=== PATIENT | male | born 1930 | race Caucasian/White ===

== ENCOUNTER 2018-06-26 01:59 | Inpatient (IN) | payer MEDICARE, BC ==
--- NOTE | 2018-06-26 02:04 | ED ---
Lower Extremity - HPI Summary HPI Summary: The pt is an 88 y/o male transferred from [facility] to [facility] c/o L hip pain since 05/28/2018 worsened today. He fell landing on his L side and injuring his L hip. He notes decreased ROM, difficulty ambulating, but denies CP, and dyspnea. The L hip pain is rated 7/10 in severity. The pt was seen at [facility] where a hip X-ray revealed hip contusion. Afterwards he continued rehabilitation to no relief. He does not see an orthopedist currently. 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 - History of Current Complaint Stated Complaint: HIP PAIN Hx Obtained From: Patient Mechanism Of Injury: Fall From A Standing Position Onset/Duration: Still Present - 4 weeks Severity Currently: Moderate Pain Intensity: 7 Pain Scale Used: 0-10 Numeric Location: Is Discrete @ - L hip Character Of Pain: Sharp Aggravating Factor(s): Ambulation - Allergies/Home Medications Allergies/Adverse Reactions: Allergies Allergy/AdvReac Type Severity Reaction Status Date / Time levofloxacin Allergy Unknown See Comment Verified 06/26/18 04:34 Penicillins Allergy Unknown Unknown Verified 06/26/18 04:34 Reaction Details Home Medications: Home Medications Metformin HCl 500 mg PO DAILY 06/26/18 [History Confirmed 06/26/18] Multivitamin [Multivitamins] 1 cap PO DAILY 06/26/18 [History Confirmed 06/26/18 ] PMH/Surg Hx/FS Hx/Imm Hx Previously Healthy: No Endocrine/Hematology History: Reports: Hx Anticoagulant Therapy - asa Denies: Hx Diabetes, Hx Thyroid Disease, Hx Anemia Cardiovascular History: Reports: Hx Aneurysm, Hx Congestive Heart Failure, Hx Hypertension History: Reports: Hx Benign Prostatic Hyperplasia Sensory History: Reports: Hx Contacts or Glasses Denies: Hx Cataracts, Hx Glaucoma, Hx Macular Degeneration, Hx Deafness Opthamlomology History: Reports: Hx Contacts or Glasses Denies: Hx Cataracts, Hx Glaucoma, Hx Macular Degeneration - Cancer History Cancer Type, Location and Year: None reported - Surgical History Surgery Procedure, Year, and Place: multiple lung operations leading to left poreumectomy in 1956, CAB x4 1999, tonsillectomy, electroraporization ~ Hx Anesthesia Reactions: No Infectious Disease History: Reports: Hx Tuberculosis - 1953 - Family History Known Family History: Positive: Unknown - Social History Occupation: Retired Lives: With Family Substance Use Type: Reports: None Smoking Status (MU): Former Smoker - Quit 50 years ago Review of Systems Negative: Chest Pain Respiratory: Negative - Dyspnea Musculoskeletal: Other - Positive: L hip pain, fall, difficulty ambulating Positive: Decreased ROM All Other Systems Reviewed And Are Negative: Yes Physical Exam - Summary Physical Exam Summary: Appearance: Well-appearing, Well-nourished, lying in bed comfortably Skin: Warm, dry, no obvious rash Eyes: sclera anicteric, no conjunctival pallor ENT: mucous membranes moist, pharynx appears normal Neck: Supple, nontender Respiratory: Clear to auscultation, no signs of respiratory distress Cardiovascular: Normal S1, S2. No murmurs. Normal distal pulses in tibial and radial bilaterally. Abdomen: Soft, nontender, normal active bowel sounds present Musculoskeletal: Pain with motion of the L hip Neurological: A&Ox3, awake and alert, mentation is normal, speech is fluent and appropriate Psychiatric: affect is normal, does not appear anxious or depressed Triage Information Reviewed: Yes Vital Signs On Initial Exam: Initial Vital Signs Temp 98.5 F 06/26/18 02:00 Pulse 106 06/26/18 02:00 Resp 18 06/26/18 02:00 BP 125/71 06/26/18 02:00 Pulse Ox 95 06/26/18 02:00 Vital Signs Reviewed: Yes Procedures - Procedure Summary Procedure Summary: Procedure: Block of the femoral nerve using 5ccs of 5% bupivacaine Diagnostics - Laboratory Lab Statement: Any lab studies that have been ordered have been reviewed, and results considered in the medical decision making process. - Radiology L Hip X-Ray Radiology Interpretation Completed By: ED Physician - IMPRESSION: Displaced femoral head fracture Lower Extremity Course/Dx - Course Course Of Treatment: An 88 year-old M presents to the ED with a CC of L hip pain since 05/28/2018 worsened today. He fell landing on his L side injuring his L hip. He notes decreased ROM, difficulty ambulating, but denies CP, and dyspnea. The L hip pain is rated 7/10 in severity. The pt was seen at [facility] where a hip X-ray revealed hip contusion. Afterwards he continued rehabilitation to no relief. He does not see an orthopedist currently. A physical exam is unremarkable. A hip pelvis X-ray reveals a displaced femoral head fracture. In the ED course, pt was given Morphine 4mg IV which improved the symptoms. I performed a femoral nerve block using 5ccs of 5% bupivacaine. I discussed the care of the pt with Dr. Judy Diane MD who agreed to admit the pt. The orthopedist agreed to see the patient tomorrow morning as inpatient. Patient will be admitted with a final Dx of L hip fracture. Pt is agreeable with this plan. Allergies noted. - Diagnoses Provider Diagnoses: Fracture of left hip - Physician Notifications Discussed Care Of Patient With: Js Edmond - Orthopedist Time Discussed With Above Provider: 02:53 Instructed by Provider To: MD Will See In ED - 03:30 - I discussed the care of the pt with Dr. Judy Diane who agreed to admit the pt. Discharge - Sign-Out/Discharge Documenting (check all that apply): Patient Departure - Discharge Plan Condition: Stable Disposition: ADMITTED TO [facility] - Attestation Statements Document Initiated by Scribe: Yes Documenting Scribe: Erica Alejandre Provider For Whom Saryibe is Documenting (Include Credential): Dr. Maikol Delaney MD Scribe Attestation: Erica Victor , scribed for Dr. Maikol Delaney MD on 06/26/18 at 0445.
[2018-06-26] MEDS ORDERED: Morphine VIAL* 4 MG/ML VIAL (1 ml vial) IV ONE (02:51)
[2018-06-26] MEDS ORDERED: Morphine INJ* 4 MG/ML 1 ML SYRINGE (NEW SYRINGE VERSION) ONE (02:58)
[2018-06-26] MEDS ORDERED: NS 0.9% 1000 ML* 1,000 ML IV SCH ×2 (03:45→04:00)
--- NOTE | 2018-06-26 04:01 | ADMNOTE ---
Subjective Date of Service: 06/26/18 Interval History: this is a h/p for admission pt is dnr/dnr molst in chart 60 min spent in eval pt hpi this is a 88 yr old wm with hx of cad s/p cabg hx of chf not sure what kind but + leg edema hx of pul fibrosis on nocturnal oxygen 3-4 liter and oxygen 3-4 liter when ambulatory was sent from [facility] for hip fx. pt had a slip on ice four weeks ago and went to [facility] er for eval had x ray and was neg --- > d/cd home. for the past four weeks he has increaseing pain on the left hip and could not bear with it ---> went in again for checkup and was found to have left femur fx ---> ct also revealed a large 6.2 cm abd aaa pt says he could walk with a austin for 5-10 blocks until lately due to the leg pain. initial ekg showed st-t depression on lead v3-v5 but trop was neg. ortho was called from er ---> will see pt in am phx/psxh pul fibrosis on nocturnal oxygen 3-4 liter/min + 3-4 liter/min upon ambulation ? copd ( quit 60 yrs ago ) prob systolic hf but no prior echo available chronic leg edema cad s/p cabg 4 v 1999 no cardiac cath done afterwards and no stress test done either hx of throracic spine tb multiple levels 1953 fully treated unsteady gait walks with a austin htn type ii dm debility hyperlipidemia bph s/p electrical ablation mood disorder espically anxiety Family History: Findings - fathter + htn Social History: Findings - quit cig smoke 60 yrs ago one glass of wine daily walks with a austin lives with Past Medical History: Findings - as per hpi Review of Systems - Measurements Intake and Output: Intake and Output Last 24 Hours 06/23/18 06/24/18 06/25/18 06/26/18 06:59 06:59 06:59 06:59 Weight 150 lb - Review of Systems General Comments: pertinent as per hpi Objective Active Medications: Amlodipine Besylate (Norvasc Tab*) 5 mg PO DAILY [facility] Digoxin (Lanoxin Tab*) 0.0001 mg PO DAILY [facility] Finasteride (Proscar Tab*) 5 mg PO DAILY [facility] Heparin Sodium (Porcine) (Heparin Vial(*)) 5,000 units SUBCUT Q8HR TALYA Sodium Chloride (Ns 0.9% 1000 Ml*) 1,000 mls @ 100 mls/hr IV PER RATE TALYA Sodium Chloride (Ns 0.9% 1000 Ml*) 1,000 mls @ 100 mls/hr IV PER RATE [facility] Insulin Human Regular (Insulin Regular(*)) 0 units SUBCUT Q6HR TALYA; Protocol Metoprolol Succinate (Toprol Xl Tab*) 100 mg PO DAILY [facility] Non-Formulary Medication (Aspirin [Aspirin]) 325 mg PO DAILY [facility] Non-Formulary Medication (Candesartan Cilexetil [Atacand]) 8 mg PO BEDTIME [facility] Non-Formulary Medication (Multivitamin [Multivitamins]) 1 cap PO DAILY [facility] Simvastatin (Zocor(Nf)) 40 mg PO DAILY [facility] Tamsulosin HCl (Flomax Cap*) 0.8 mg PO DAILY [facility] Vital Signs - 8 hr 06/26/18 06/26/18 02:00 03:02 Temperature 98.5 F Pulse Rate 106 Respiratory 18 24 Rate Blood Pressure 125/71 (mmHg) O2 Sat by Pulse 95 Oximetry Oxygen Devices in Use Now: Nasal Cannula Appearance: nad Eyes: No Scleral Icterus, PERRLA Ears/Nose/Mouth/Throat: NL Teeth, Lips, Gums, Clear Oropharnyx, - - oral mucosa very dry no thrush Neck: NL Appearance and Movements; NL JVP, Trachea Midline, No Thyroid Enlargement, Masses Respiratory: Symmetrical Chest Expansion and Respiratory Effort, Clear to Auscultation Cardiovascular: NL Sounds; No Murmurs; No JVD, RRR Abdominal: NL Sounds; No Tenderness; No Distention Extremities: - - 3+ pedal edema from ankle to knee level b/l 1+ from knee to thigh able to raise ue against gravity lle is shorter than rle Skin: No Rash or Ulcers Neurological: Alert and Oriented x 3, - - cranial n 2-12 grossly intact motor b/ l ue 5/5 b/l ue and le sensory 2/2 Additional Lab and Data: wbc 10.6 h/h 12.3/37.4 plat 673 mcv 96.9 rdw 13 n 79 percent na 141 k 3.5 cl 103 bicarb 32 bun 45 creatinine 1.7 glucose 123 tp 7.1 alb 3.5 tb 0.7 ast 26 alt 62 alk 309 [id number] trop 0.014 EKG Data: sinus tach at rate [address]- t depression on v5/v6 Assess/Plan/Problems-Billing Assessment: 88 yr old wm with multiple medical problems was transferred from [facility] to [facility] due to concurrent hip fx seen on ct of abd/pelvis. pt was found to have a 6.2 cm aaa as well. has st t depression on v3-v5 on initial ekg done in [facility] too. however he was able to walk with austin for 5-10 blocks if his leg does not bother him---> functonal mets >4 but would still get cardio eval due to his other cardiac problem - Patient Problems (1) Left displaced femoral neck fracture Current Visit: Yes Status: Acute Code(s): S72.002A - FRACTURE OF UNSP PART OF NECK OF LEFT FEMUR, INIT SNOMED Code(s): 0395378 Comment: ortho to eval in am morphine 1/2 q4 prn pending pain level zofran prn ortho called in from er (2) CAD (coronary artery disease) Current Visit: Yes Status: Acute Code(s): I25.10 - ATHSCL HEART DISEASE OF [place] CORONARY ARTERY W/O ANG PCTRS SNOMED Code(s): 47484013 Comment: hx of cad s/p cabg 4 v 1999 but no stent and no stress test done afterwards st t depression on the v3-v5 lead but trop neg large 6.2 cm aaa seen on ct cardio for [place] in am will continue his heart meds tele with madiha ck dig level in am (3) CHF (congestive heart failure) Current Visit: Yes Status: Acute Code(s): I50.9 - HEART FAILURE, UNSPECIFIED SNOMED Code(s): 43374803 Comment: pt is also + pedal edema prob systolic hf will order echo in am (4) Pulmonary fibrosis Current Visit: Yes Status: Acute Code(s): J84.10 - PULMONARY FIBROSIS, UNSPECIFIED SNOMED Code(s): 19448880 Comment: on oxygen 3-4 liter supportive care at this time (5) Oxygen dependent Current Visit: Yes Status: Acute Code(s): Z99.81 - DEPENDENCE ON SUPPLEMENTAL OXYGEN SNOMED Code(s): 457844911046 Comment: continue oxygen at this point (6) HTN (hypertension) Current Visit: Yes Status: Acute Code(s): I10 - ESSENTIAL (PRIMARY) HYPERTENSION SNOMED Code(s): 81963764 Comment: stable continue current mgt (7) Type II diabetes mellitus Current Visit: Yes Status: Acute Comment: npo for possible surgery ck a1c hold metfomrin insulin ss (8) BPH (benign prostatic hyperplasia) Current Visit: Yes Status: Acute Code(s): N40.0 - BENIGN PROSTATIC HYPERPLASIA WITHOUT LOWER URINRY TRACT SYMP SNOMED Code(s): 678106831 Comment: [facility] for comfort (9) Anxiety Current Visit: Yes Status: Acute Code(s): F41.9 - ANXIETY DISORDER, UNSPECIFIED SNOMED Code(s): 63600572 Comment: ativan prn ordered 0.25 q 8h (10) DNR (do not resuscitate) Current Visit: Yes Status: Acute (11) Hyperlipidemia Current Visit: Yes Status: Acute Code(s): E78.5 - HYPERLIPIDEMIA, UNSPECIFIED SNOMED Code(s): 62680878 (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
[2018-06-26] MEDS ORDERED: Morphine INJ* 4 MG/ML 1 ML SYRINGE (NEW SYRINGE VERSION) IV PRN ×2 (04:02→06:00)
[2018-06-26] MEDS ORDERED: Ondansetron INJ* 2 MG/ML VIAL IV PRN (04:02)
[2018-06-26] MEDS ORDERED: LORazepam TAB(*) 0.5 MG PO PRN (04:35)
[2018-06-26] MEDS ORDERED: Insulin REGULAR(*) 1 UNITS UNIT SUBCUT SCH (06:00)
[2018-06-26 06:30] LABS: ABS Basophils 0 10^3/ul (0-0.2); ABS Eosinophils 0.1 10^3/ul (0-0.6); ABS Lymphocytes 0.7 10^3/ul (1.0-4.8); ABS Monocytes 0.8 10^3/ul (0-0.8); ABS Neutrophils 6.1 10^3/ul (1.5-7.7); ABS Nucleated RBC 0 10^3/ul; Eosinophil % 1.5 % (0-6); Hematocrit 34 % (42-52); Hemoglobin 11.8 g/dl (14.0-18.0); Lymphocyte % 9.1 % (25-47); Mean Corpuscular HGB Conc 34 g/dl (31-36); Mean Corpuscular Hemoglobin 32 pg (27-31); Mean Corpuscular Volume 94 fL (80-94); Mean Platelet Volume 7.7 um3 (7.4-10.4); Nucleated Red Blood Cells % 0; Platelet Count 155 10^3/ul (150-450); Red Blood Count 3.63 10^6/ul (4.00-5.40); Red Cell Distribution Width 13 % (10.5-15); White Blood Count 7.9 10^3/ul (3.5-10.8)
[2018-06-26 06:41] LABS: INR 1.06 (0.77-1.02)
[2018-06-26 06:51] LABS: EGFR Non-African American 51.8 (>60)
--- NOTE | 2018-06-26 07:06 | CONSULT ---
Consult Consult: Ortho Consult Summary 88 yo male, fell 4 weeks ago, x-rays negative, but with increasing left hip pain. Returned to [facility] ED and x-rays found a displaced left femoral neck fracture. Has multiple medical comorbidities. D/w him a hemiarthroplasty is standard treatment for this. Will await medical optimization.
--- NOTE | 2018-06-26 07:14 | DS ---
this is discharge summery AFTER SPEAKING WITH [facility] WHO COULD NOT EVAL HIS LARGE SIZE OF AAA ---> DUE TO THE SIZE AND POSSIBLE INCREASE CHANCE OF RUPTURE PERIOPERATIVELY ---> TRANSFER TO [facility] INITIATED ---> SPOKE WITH THEIR VASCULAR SURGERY WHO WILL SEE PT A CONSULT ---> ALSO SPOKE WITH MEDICAL SERVICE AND PT WAS ACCEPTED BY DR NICHOLS. [facility] AND MEDICAL TEAM IS GREATLY APPRECIATED. PT WAS ADMITTED EARLIER FOR LEFT FEMUR FRACTURE WHO NEEDS ORTHO SURGERY. BUT CT OF ABD/PELVIS ALSO SHOWED A LARGE 6.2 CM AAA. [facility] [place] [facility]GERY SERVICE AND PT IS TRANSFERRED TO [facility] DUE TO THE NEED OF HIGHER LEVEL OF SERVICE PERIOPERIOPERATIVELY pt is dnr/dnr molst in chart hpi this is a 88 yr old wm with hx of cad s/p cabg hx of chf not sure what kind but + leg edema hx of pul fibrosis on nocturnal oxygen 3-4 liter and oxygen 3-4 liter when ambulatory was sent from [facility] for hip fx. pt had a slip on ice four weeks ago and went to [facility] er for eval had x ray and was neg --- > d/cd home. for the past four weeks he has increaseing pain on the left hip and could not bear with it ---> went in again for checkup and was found to have left femur fx ---> ct also revealed a large 6.2 cm abd aaa pt says he could walk with a austin for 5-10 blocks until lately due to the leg pain. initial ekg showed st-t depression on lead v3-v5 but trop was neg. ortho was called from er ---> will see pt in am phx/psxh pul fibrosis on nocturnal oxygen 3-4 liter/min + 3-4 liter/min upon ambulation ? copd ( quit 60 yrs ago ) prob systolic hf but no prior echo available chronic leg edema cad s/p cabg 4 v 1999 no cardiac cath done afterwards and no stress test done either hx of throracic spine tb multiple levels 1953 fully treated unsteady gait walks with a [place]in htn type ii dm debility hyperlipidemia bph s/p electrical ablation mood disorder espically anxiety Family History: Findings - fathter + htn Social History: Findings - quit cig smoke 60 yrs ago one glass of wine daily walks with a austin lives with Past Medical History: Findings - as per hpi Review of Systems - Measurements Intake and Output: Intake and Output Last 24 Hours 06/23/18 06/24/18 06/25/18 06/26/18 06:59 06:59 06:59 06:59 Weight 150 lb - Review of Systems General Comments: pertinent as per hpi Objective Active Medications: Amlodipine Besylate (Norvasc Tab*) 5 mg PO DAILY [facility] Digoxin (Lanoxin Tab*) 0.0001 mg PO DAILY [facility] Finasteride (Proscar Tab*) 5 mg PO DAILY [facility] Heparin Sodium (Porcine) (Heparin Vial(*)) 5,000 units SUBCUT Q8HR [facility] Sodium Chloride (Ns 0.9% 1000 Ml*) 1,000 mls @ 100 mls/hr IV PER RATE [facility] Sodium Chloride (Ns 0.9% 1000 Ml*) 1,000 mls @ 100 mls/hr IV PER RATE [facility] Insulin Human Regular (Insulin Regular(*)) 0 units SUBCUT Q6HR TALYA; Protocol Metoprolol Succinate (Toprol Xl Tab*) 100 mg PO DAILY [facility] Non-Formulary Medication (Aspirin [Aspirin]) 325 mg PO DAILY [facility] Non-Formulary Medication (Candesartan Cilexetil [Atacand]) 8 mg PO BEDTIME [facility] Non-Formulary Medication (Multivitamin [Multivitamins]) 1 cap PO DAILY [facility] Simvastatin (Zocor(Nf)) 40 mg PO DAILY [facility] Tamsulosin HCl (Flomax Cap*) 0.8 mg PO DAILY [facility] Vital Signs - 8 hr 06/26/18 06/26/18 02:00 03:02 Temperature 98.5 F Pulse Rate 106 Respiratory 18 24 Rate Blood Pressure 125/71 (mmHg) O2 Sat by Pulse 95 Oximetry Oxygen Devices in Use Now: Nasal Cannula Appearance: nad Eyes: No Scleral Icterus, PERRLA Ears/Nose/Mouth/Throat: NL Teeth, Lips, Gums, Clear Oropharnyx, - - oral mucosa very dry no thrush Neck: NL Appearance and Movements; NL JVP, Trachea Midline, No Thyroid Enlargement, Masses Respiratory: Symmetrical Chest Expansion and Respiratory Effort, Clear to Auscultation Cardiovascular: NL Sounds; No Murmurs; No JVD, RRR Abdominal: NL Sounds; No Tenderness; No Distention Extremities: - - 3+ pedal edema from ankle to knee level b/l 1+ from knee to thigh able to raise ue against gravity lle is shorter than rle Skin: No Rash or Ulcers Neurological: Alert and Oriented x 3, - - cranial n 2-12 grossly intact motor b/ l ue 5/5 b/l ue and le sensory 2/2 Additional Lab and Data: wbc 10.6 h/h 12.3/37.4 plat 673 mcv 96.9 rdw 13 n 79 percent na 141 k 3.5 cl 103 bicarb 32 bun 45 creatinine 1.7 glucose 123 tp 7.1 alb 3.5 tb 0.7 ast 26 alt 62 alk 309 ces558 trop 0.014 EKG Data: sinus tach at rate [address]- t depression on v5/v6 Assess/Plan/Problems-Billing Assessment: 88 yr old wm with multiple medical problems was transferred from [facility] to [facility] due to concurrent hip fx seen on ct of abd/pelvis. pt was found to have a 6.2 cm aaa as well. has st t depression on v3-v5 on initial ekg done in [facility] too. however he was able to walk with austin for 5-10 blocks if his leg does not bother him---> functonal mets >4 but would still get cardio eval due to his other cardiac problem - Patient Problems (1) Left displaced femoral neck fracture Current Visit: Yes Status: Acute Code(s): S72.002A - FRACTURE OF UNSP PART OF NECK OF LEFT FEMUR, INIT SNOMED Code(s): 2213361 Comment: ortho to eval in am morphine 1/2 q4 prn pending pain level zofran prn ortho called in from er (2) CAD (coronary artery disease) Current Visit: Yes Status: Acute Code(s): I25.10 - ATHSCL HEART DISEASE OF [place] CORONARY ARTERY W/O ANG PCTRS SNOMED Code(s): 61268904 Comment: hx of cad s/p cabg 4 v 1999 but no stent and no stress test done afterwards st t depression on the v3-v5 lead but trop neg large 6.2 cm aaa seen on ct cardio for [place] in am will continue his heart meds tele with madiha ck dig level in am (3) CHF (congestive heart failure) Current Visit: Yes Status: Acute Code(s): I50.9 - HEART FAILURE, UNSPECIFIED SNOMED Code(s): 73329632 Comment: pt is also + pedal edema prob systolic hf will order echo in am (4) Pulmonary fibrosis Current Visit: Yes Status: Acute Code(s): J84.10 - PULMONARY FIBROSIS, UNSPECIFIED SNOMED Code(s): 21814558 Comment: on oxygen 3-4 liter supportive care at this time (5) Oxygen dependent Current Visit: Yes Status: Acute Code(s): Z99.81 - DEPENDENCE ON SUPPLEMENTAL OXYGEN SNOMED Code(s): 729030380169 Comment: continue oxygen at this point (6) HTN (hypertension) Current Visit: Yes Status: Acute Code(s): I10 - ESSENTIAL (PRIMARY) HYPERTENSION SNOMED Code(s): 95126241 Comment: stable continue current mgt (7) Type II diabetes mellitus Current Visit: Yes Status: Acute Comment: npo for possible surgery ck a1c hold metfomrin insulin ss (8) BPH (benign prostatic hyperplasia) Current Visit: Yes Status: Acute Code(s): N40.0 - BENIGN PROSTATIC HYPERPLASIA WITHOUT LOWER URINRY TRACT SYMP SNOMED Code(s): 820392915 Comment: [facility] (9) Anxiety Current Visit: Yes Status: Acute Code(s): F41.9 - ANXIETY DISORDER, UNSPECIFIED SNOMED Code(s): 03447600 Comment: ativan prn ordered 0.25 q 8h (10) DNR (do not resuscitate) Current Visit: Yes Status: Acute (11) Hyperlipidemia Current Visit: Yes Status: Acute Code(s): E78.5 - HYPERLIPIDEMIA, UNSPECIFIED SNOMED Code(s): 21613881 (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
[2018-06-26 07:57] VITALS: BP 113/54
--- NOTE | 2018-06-26 08:01 | RAD ---
Indication: Left hip pain. Of 2 views of left hip and an AP view the pelvis demonstrates a fracture through the neck of the femur with overriding of the fracture fragments. Joint spaces well-preserved. Patient reports a known left hip fracture. IMPRESSION: Fracture neck of the left femur. R1
[2018-06-26] MEDS ORDERED: Atorvastatin* 20 MG TAB PO SCH (09:00)
[2018-06-26] MEDS ORDERED: Vitamin THERAPEUTIC TAB PO SCH (09:00)
[2018-06-26] MEDS ORDERED: Finasteride TAB* 5 MG PO SCH (09:00)
[2018-06-26] MEDS ORDERED: Tamsulosin CAP* 0.4 MG PO SCH (09:00)
[2018-06-26] MEDS ORDERED: Aspirin TAB* 325 MG PO SCH (09:00)
[2018-06-26] MEDS ORDERED: amLODIPine TAB* 5 MG PO SCH (09:00)
[2018-06-26] MEDS ORDERED: Metoprolol Succinate XL TAB* 100 MG PO SCH (09:00)
[2018-06-26] MEDS ORDERED: Digoxin TAB* 0.125 MG PO SCH (17:00)
[2018-06-26] MEDS ORDERED: Valsartan TAB* 40 MG PO SCH (21:00)
[2018-06-26] MEDS ORDERED: Heparin VIAL(*) 5000 UNITS/ML VIAL (FIVE THOUSAND) SUBCUT SCH (22:00)
== END 2018-06-26 09:35 | disposition short-term general hospital (02) | DRG 536 ==
LOC: ED 01:59 → MEDTELE 03:32
PROVIDERS: ADMIT Internal Medicine; ATTEND Internal Medicine
DX: S72.002A Fracture of unspecified part of neck of left femur, initial encounter for closed fracture (principal); I50.20 Unspecified systolic (congestive) heart failure; I71.4 Abdominal aortic aneurysm, without rupture; I11.0 Hypertensive heart disease with heart failure; J84.10 Pulmonary fibrosis, unspecified; Z99.81 Dependence on supplemental oxygen; Z95.1 Presence of aortocoronary bypass graft; E11.9 Type 2 diabetes mellitus without complications; R60.0 Localized edema; R26.81 Unsteadiness on feet; Z66 Do not resuscitate; E78.5 Hyperlipidemia, unspecified; F41.9 Anxiety disorder, unspecified; I25.10 Atherosclerotic heart disease of native coronary artery without angina pectoris; N40.0 Benign prostatic hyperplasia without lower urinary tract symptoms; W00.2XXA Other fall from one level to another due to ice and snow, initial encounter; Z86.11 Personal history of tuberculosis; Y92.9 Unspecified place or not applicable; Z82.49 Family history of ischemic heart disease and other diseases of the circulatory system; Z87.891 Personal history of nicotine dependence; Z79.01 Long term (current) use of anticoagulants; Z79.82 Long term (current) use of aspirin; Z79.4 Long term (current) use of insulin; Z79.899 Other long term (current) drug therapy
CPT/HCPCS: 36415; 80048; 80162; 83036; 83735; 84443; 84484; 85025; 85610; 85730; 93005; 99284; A9270-GY; J2270